=== PATIENT | female | born 1970 | race Caucasian/White ===

== ENCOUNTER 2017-11-03 20:08 | Emergency (ER) | payer OTHER ==
[~2017-11-03] VITALS: Ht 157.5 cm; Wt 68.9 kg
--- NOTE | 2017-11-03 21:37 | NUR ---
Patient ambulated to restroom with stable gait.
[2017-11-03] MEDS ORDERED: FLUCONAZOLE 100 MG TABLET PO ONE (22:00)
--- NOTE | 2017-11-03 22:05 | NUR ---
Patient discharged to home in stable conditon. Written and verbal after care instructions given. Patient verbalizes understanding of instructions. Ambulated from ER with stable gait. All belongings with patient.
[2017-11-03 22:09] VITALS: BP 128/80
[2017-11-03 22:14] LABS: *URINE HCG, QUAL NEGATIVE (NEGATIVE)
[2017-11-03] MEDS ORDERED: FLUCONAZOLE 100 MG TABLET ONE (22:18)
== END 2017-11-03 22:10 | disposition home or self-care (01) ==
LOC: ER 20:09
DX: N76.0 Acute vaginitis (principal)
CPT/HCPCS: 84703; 99283; A4663